=== PATIENT | male | born 1985 | race Caucasian/White ===

== ENCOUNTER 2019-09-20 22:43 | Emergency (ER) | payer OTHER ==
[~2019-09-20] VITALS: Ht 188 cm; Wt 90.0 kg
[~2019-09-20 22:43] MED LIST: BACTRIM DS1 TAB PO
[2019-09-21] MEDS ORDERED: TAM75CAP PO (00:21)
[2019-09-21 00:40] VITALS: BP 134/93
== END 2019-09-21 00:40 | disposition home or self-care (01) | DRG 153 ==
LOC: ED 22:43
DX: J11.1 Influenza due to unidentified influenza virus with other respiratory manifestations (principal); F17.210 Nicotine dependence, cigarettes, uncomplicated